=== PATIENT | male | born 1970 | race Caucasian/White ===

== ENCOUNTER 2023-12-09 08:36 | Emergency (ER) | payer OTHER, SELFPAY ==
--- NOTE | 2023-12-09 08:39 | ED.EXTPRO ---
HPI - Extremity Problem General Chief complaint: Skin/Abscess/Foreign Body Stated complaint: Right Leg Pain Time Seen by Provider: 12/09/23 08:38 Source: patient Mode of arrival: ambulatory Limitations: no limitations History of Present Illness HPI Narrative: Nahum is a 53-year-old male patient presenting to the clinic today with complaints of right upper thigh pain x 4 days. He reports no fever or chills but does state that he feels somewhat fatigued. He is also requesting a medication refill on his colestipol for chronic diarrhea. Related Data Home Medications Medication Instructions Recorded Confirmed amlodipine 10 mg tablet mg 12/09/23 atorvastatin 40 mg tablet mg 12/09/23 colestipol 1 gram tablet g PO 12/09/23 lisinopril 20 tablet 12/09/23 mg-hydrochlorothiazide 12.5 mg tablet potassium chloride 20 mEq meq PO 12/09/23 tablet,extended release(part/cryst) Allergies Allergy/AdvReac Type Severity Reaction Status Date / Time No Known Allergies Allergy Verified 12/09/23 08:55 Review of Systems Review of Systems: Pertinent positives per HPI. Patient denies any fever, chills, rash, headache, visual changes, dizziness, cough, runny nose, sore throat, shortness of breath, chest pain, palpitations, nausea, vomiting, diarrhea, constipation, abdominal pain, or any urinary issues. PMFSH Comments At the time of my signature, I reviewed and agree with the nursing past medical, surgical, social, and family history. There is no relevant family history pertinent to the patient complaint. Exam Narrative: General: Well-developed, well nourished, in no apparent distress Head: Normocephalic, atraumatic. Cardio: Regular rate and rhythm, s1 and s2 normal, no murmur appreciated. Resp: Clear to auscultation bilaterally, no rhonchi, rales, wheezing or rubs. Integumentary: [place], warm, and dry, 9 x 7 cm firm, indurated, erythemic, red, and tender area to the right anterior thigh. No abscess palpable. Skin marker was used to outline the redness. No edema to the right thigh or lower leg, pedal pulse palpable and strong. Course Course Emergency Course: Portions of this record may have been created with voice recognition software. Level of Care: Express Care Visit Vital Signs Vital signs: Vital Signs Temperature 37.2 C 12/09/23 08:51 Pulse Rate 84 12/09/23 08:51 Respiratory Rate 18 12/09/23 08:51 Blood Pressure 133/77 12/09/23 08:51 Pulse Oximetry 98 12/09/23 08:51 Oxygen Delivery Room Air 12/09/23 08:51 Temperature 37.2 C 12/09/23 08:51 Pulse Rate 84 12/09/23 08:51 Respiratory Rate 18 12/09/23 08:51 Blood Pressure 133/77 12/09/23 08:51 Pulse Oximetry 98 12/09/23 08:51 Oxygen Delivery Room Air 12/09/23 08:51 Vital signs reviewed MDM - Extremity (Nontraumatic) MDM Narrative Medical decision making narrative: At the time of visit patient is resting comfortably on the exam table. Patient appears to be nontoxic. Supportive measures were discussed with the patient and they voiced understanding discharge instructions and agrees to treatment plan. Return precautions reviewed Differential Diagnosis Differential diagnosis: Likely cellulitis Discharge Plan Discharge Clinical Impression: Cellulitis Qualifiers: Site of cellulitis: extremity Site of cellulitis of extremity: lower extremity Laterality: right Qualified Code(s): L03.115 - Cellulitis of right lower limb Patient Disposition: Home, Self-Care Condition: Stable Instructions: Antibiotic Form, Cellulitis (ED) Additional Instructions: Ceftriaxone 2 g IM given in the clinic today Start clindamycin 300 mg every 6 hours x 10 days May apply warm compress to the affected area to help bring to a head- if this becomes fluctuant may come follow up and have it drained. May take Tylenol/Motrin as needed for pain Increase fluids and stay well hydrated Take probiotic daily-take 2 hours bef
[2023-12-09 08:51] VITALS: BP 133/77; PULSE 84; RESP 18; TEMP 37.2; O2SAT 98
== END 2023-12-09 09:30 | disposition home or self-care (01) ==
PROVIDERS: Emergency Provider Nurse Practitioner Family
DX: L03.115 Cellulitis of right lower limb (principal); E78.00 Pure hypercholesterolemia, unspecified; I10 Essential (primary) hypertension; Z85.51 Personal history of malignant neoplasm of bladder; Z90.6 Acquired absence of other parts of urinary tract; Z93.6 Other artificial openings of urinary tract status
CPT/HCPCS: 96372; 99213; G0463; J0696

== ENCOUNTER 2023-12-12 08:06 | Emergency (ER) | payer OTHER, SELFPAY ==
[2023-12-12 08:25] VITALS: BP 153/86; PULSE 70; RESP 16; TEMP 37.4; O2SAT 99
--- NOTE | 2023-12-12 08:59 | ED.GENADULT ---
HPI - General Adult General Chief complaint: Skin/Abscess/Foreign Body Stated complaint: right leg issue Source: patient Mode of arrival: ambulatory Limitations: no limitations History of Present Illness HPI narrative: 53-year-old male with history of bladder cancer presented for complaint of skin infection to the right thigh for one week. Patient was seen for this wound on 12/09/2023, described as 9x7cm was prescribed clindamycin and given IM Rocephin in the clinic. He states the site is still red, warm, and tender, and is spreading to the side of the leg. States pain keeps him up at night. He also endorses an additional open wound to right lower leg which he sustained on 10/04/23 while at work. He states that wound was sutured but did not receive antibiotics, subsequently developed infection to the site, given IV abx, and has continued to treat the wound with washing with warm soapy water and covering it with gauze. Pt states he is concerned the two wounds are related. Related Data Home Medications Medication Instructions Recorded Confirmed amlodipine 10 mg tablet 10 mg PO DAILY 12/09/23 12/12/23 atorvastatin 40 mg tablet 40 mg PO DAILY 12/09/23 12/12/23 lisinopril 20 1 tablet PO DAILY 12/09/23 12/12/23 mg-hydrochlorothiazide 12.5 mg tablet potassium chloride 20 mEq 20 meq PO DIRECTED 12/09/23 12/12/23 tablet,extended release(part/cryst) Allergies Allergy/AdvReac Type Severity Reaction Status Date / Time No Known Allergies Allergy Verified 12/12/23 08:28 Review of Systems Review of Systems: CONSTITUTIONAL: Denies body aches, fever, chills, or sweats. EYES: Denies visual changes, redness, or discharge. ENT: Denies rhinorrhea, congestion CARDIOVASCULAR: Denies chest pain, palpitations, or edema. RESPIRATORY: Denies cough or dyspnea. GASTROINTESTINAL: Denies abdominal pain, nausea, vomiting, or diarrhea. SKIN: reports RLE leg wounds MUSCULOSKELETAL: Denies back pain, joint pain, or myalgia. NEUROLOGIC: Denies headache, numbness, tingling, or weakness. PMFSH Past Medical History Medical History (Updated 12/12/23 @ 09:30 by Jayshree Bernstein APRN) Bladder cancer Surgical History Surgical History (Updated 12/12/23 @ 09:02 by Jayshree Bernstein APRN) History of urostomy Social History Social History (Updated 12/12/23 @ 09:03 by Jayshree Bernstein APRN) Smoking status: Current every day smoker Comments At time of signature, I have reviewed and agree with nursing past medical, surgical, social and family history unless otherwise noted. Please see nursing chart for further information. There is no relevant family history pertinent to the presenting complaint Exam Narrative: GENERAL: Well-appearing ENT: Mucous membranes moist. NECK: Supple. No lymphadenopathy CHEST: Clear to auscultation. HEART: Regular rate and rhythm. SKIN: Warm, dry. Right anterior thigh area of induration approx [id number], the previously marked area appears to be improving medially but induration spreading laterally. Site is warm, tender. No fluctuance or active drainage. Right lower leg with [id number] open wound, draining serous fluid, tender surrounding the site. NEURO: Alert and oriented x3. Course Course Emergency Course: Patient is aware of diagnosis, understands and agrees to treatment plan. Anticipatory guidance given. Patient agrees to follow-up as directed and is aware of reasons to seek care at the emergency department. Portions of this record may have been created with voice recognition software Level of Care: Express Care Visit Vital Signs Vital signs: Vital Signs Temperature 99.3 F 12/12/23 08:25 Pulse Rate 70 12/12/23 08:25 Respiratory Rate 16 12/12/23 08:25 Blood Pressure 153/86 H 12/12/23 08:25 Pulse Oximetry 99 12/12/23 08:25 Oxygen Delivery Room Air 12/12/23 08:25 Temperature 99.3 F 12/12/23 08:25 Pulse Rate 70 12/12/23 08:25 Respiratory Rate
== END 2023-12-12 09:32 | disposition short-term general hospital (02) ==
PROVIDERS: Emergency Provider Nurse Practitioner Family
DX: S71.101D Unspecified open wound, right thigh, subsequent encounter (principal); L03.115 Cellulitis of right lower limb; X58.XXXD Exposure to other specified factors, subsequent encounter; Z85.51 Personal history of malignant neoplasm of bladder; F17.200 Nicotine dependence, unspecified, uncomplicated; Z93.6 Other artificial openings of urinary tract status
CPT/HCPCS: 99211; 99212; G0463

== ENCOUNTER 2023-12-12 10:08 | Emergency (ER) | payer OTHER, SELFPAY ==
[2023-12-12 10:09] VITALS: BP 151/89; PULSE 64; RESP 16; TEMP 36.4; O2SAT 100
--- NOTE | 2023-12-12 10:15 | ED.SKABFB ---
HPI - Skin/Abscess/Foreign Bdy General Chief complaint: Extremity Problem,Nontraumatic <Rakesh Brothers APRN - Last Filed: 12/12/23 13:37> Stated complaint: infx on leg <Rakesh Brothers APRN - Last Filed: 12/12/23 13:37> Time Seen by Provider: 12/12/23 10:15 <Rakesh Brothers APRN - Last Filed: 12/12/23 13:37> Source: patient <Rakesh Brothers APRN - Last Filed: 12/12/23 13:37> Mode of arrival: ambulatory <Rakesh Brothers APRN - Last Filed: 12/12/23 13:37> Limitations: no limitations <Rakesh Brothers APRN - Last Filed: 12/12/23 13:37> History of Present Illness HPI narrative: Nahum is a 53-year-old male patient presenting to the ER today with complaints of an abscess to the right thigh. Was seen in the urgent care 4 days ago and placed on clindamycin and given 2 g Rocephin IM. States that the redness has gotten worse laterally. Also reports that the area is now fluctuant when it was not fluctuant 4 days ago. Denies any fever or chills. <Rakesh Brothers APRN - Last Filed: 12/12/23 13:37> Related Data Home medications: Home Medications Medication Instructions Recorded Confirmed amlodipine 10 mg tablet 10 mg PO DAILY 12/09/23 12/12/23 atorvastatin 40 mg tablet 40 mg PO DAILY 12/09/23 12/12/23 lisinopril 20 1 tablet PO DAILY 12/09/23 12/12/23 mg-hydrochlorothiazide 12.5 mg tablet potassium chloride 20 mEq 20 meq PO DIRECTED 12/09/23 12/12/23 tablet,extended release(part/cryst) <Rakesh Brothers APRN - Last Filed: 12/12/23 13:37> Allergies/Adverse reactions: Allergies Allergy/AdvReac Type Severity Reaction Status Date / Time No Known Allergies Allergy Verified 12/12/23 08:28 <Rakesh Brothers APRN - Last Filed: 12/12/23 13:37> Review of Systems Review of Systems: Pertinent positives per HPI. Patient denies any fever, chills, rash, headache, visual changes, dizziness, cough, shortness of breath, chest pain, palpitations, nausea, vomiting, diarrhea, constipation, abdominal pain, or any urinary issues. <Rakesh Brothers APRN - Last Filed: 12/12/23 13:37> PMFSH Past Medical History Medical History: Medical History Bladder cancer <Rakesh Brothers APRN - Last Filed: 12/12/23 13:37> Surgical History Surgical History: Surgical History History of urostomy <Rakesh Brothers APRN - Last Filed: 12/12/23 13:37> Social History Social History: Social History Smoking status: Current every day smoker <Rakesh Brothers APRN - Last Filed: 12/12/23 13:37> Comments At the time of my signature, I reviewed and agree with the nursing past medical, surgical, social, and family history. There is no relevant family history pertinent to the patient complaint. <Rakesh Brothers APRN - Last Filed: 12/12/23 13:37> Exam Narrative: General: Well-developed, well nourished, in no apparent distress Head: Normocephalic, atraumatic. Cardio: Regular rate and rhythm, s1 and s2 normal, no murmur appreciated. Resp: Clear to auscultation bilaterally, no rhonchi, rales, wheezing or rubs. Integumentary: [place], warm, and dry, intact without lesion, 11cm x 7 cm induration with fluctuance to the right anterior thigh, redness, erythema, and tenderness to palpation. <Rakesh Brothers APRN - Last Filed: 12/12/23 13:37> Course Course Emergency Course: Portions of this record may have been created with voice recognition software. <Rakesh Brothers APRN - Last Filed: 12/12/23 13:37> BUSINESS DEVELOPMENT INTERN/PA Physician Supervision For this patient encounter, I reviewed the BUSINESS DEVELOPMENT INTERN or PA documentation, treatment plan, and medical decision making; and I had [id number] time with this patient. <Vince Mccarty MD - Last Filed: 12/12/23 17:
[2023-12-12 11:19] LABS: Basophils Absolute Auto 0.1 K/mm3 (0.0-0.1); Basophils Percent Auto 0.8 % (0.2-1.2); Eosinophils Absolute Auto 0.4 K/mm3 (0-0.3); Eosinophils Percent Auto 3.7 % (0-4.4); Hematocrit 41.8 % (42.0-52.0); Hemoglobin 13.3 g/dL (14.0-18.0); Immature Granulocyte Absolute 0.03 K/mm3 (0.00-0.031); Immature Granulocyte Percent A 0.3 % (0-0.5); Lymphocytes Absolute Auto 1.72 K/mm3 (0.9-3.2); Lymphocytes Percent Auto 14.4 % (18.3-44.2); Mean Corpuscular HGB Conc 31.8 g/dl (32-36); Mean Corpuscular Hemoglobin 28.6 pg (26-34); Mean Corpuscular Volume 89.9 fl (80-100); Mean Platelet Volume 10.4 fl (7.4-10.4); Monocytes Absolute Auto 0.6 K/mm3 (0.1-0.6); Monocytes Percent Auto 5.3 % (2.6-8.5); Neutrophils Absolute Auto 9.1 K/mm3 (1.3-6.7); Neutrophils Percent Auto 75.5 % (45.5-73.1); Platelet Count Result 225 k/mm3 (150-375); Red Blood Count 4.65 M/mm3 (4.6-6.20); Red Cell Distribution Width 14.1 % (11.5-14.5)
[2023-12-12 11:30] LABS: Alanine Aminotransferase 23 U/L (6-50); Albumin Level 3.9 g/dL (3.5-5.1); Alkaline Phosphatase 91 U/L (38-126); Anion Gap 6 mmol/L (8-16); Aspartate Amino Transferase 22 U/L (17-59); Bilirubin,Total 0.9 mg/dL (0.2-1.3); Blood Urea Nitrogen 18 mg/dL (9-20); Calcium 8.7 mg/dL (8.4-10.2); Carbon Dioxide 31 mmol/L (22-30); Chloride 106 mmol/L (98-107); Estimated CRCL calculation 106 ml/min; Estimated Glomerular Filt Rate > 60; Glucose 98 mg/dL (65-110); Sodium 143 mmol/L (137-145)
[2023-12-12 11:31] LABS: Lactic Acid Reflex 1.8 mmol/L (0.7-2.0)
== END 2023-12-12 12:18 | disposition home or self-care (01) ==
PROVIDERS: Emergency Provider Nurse Practitioner Family
DX: L02.415 Cutaneous abscess of right lower limb (principal); L03.115 Cellulitis of right lower limb; F17.200 Nicotine dependence, unspecified, uncomplicated; Z85.51 Personal history of malignant neoplasm of bladder; Z93.6 Other artificial openings of urinary tract status
CPT/HCPCS: 10061; 36415; 80053; 83605; 85025; 87040; 87070; 87147; 87181; 87186; 87205; 99283

== ENCOUNTER 2023-12-16 10:46 | Emergency (ER) | payer OTHER, SELFPAY ==
[2023-12-16] VITALS (14 sets, daily range): BP systolic 142–161; BP diastolic 91–110; PULSE 53–67; RESP 9–27; TEMP 36.6; O2SAT 96–100
--- NOTE | ~2023-12-16 | XR_ITS ---
EXAMINATION: XR chest 2V DATE: 12/16/2023 12:48 INDICATION: Infection left lower leg. TECHNIQUE: Frontal and lateral views of the chest were obtained. COMPARISON: None. FINDINGS: There is mild atelectasis in left lower lung zone. No pleural effusion or pneumothorax. The heart size is normal. There is a right internal jugular port with tip in superior vena cava. IMPRESSION: 1. Mild atelectasis in left lower lung zone. Reviewed, dictated and finalized at location E. [employer]
--- NOTE | 2023-12-16 12:06 | ED.GENADULT ---
HPI - General Adult General Chief complaint: Unspecified Stated complaint: positive blood culture Time Seen by Provider: 12/16/23 12:10 History of Present Illness HPI narrative: Patient is a 53-year-old male who presents to the emergency department this morning after getting a call that a wound that he was treated for here on Wednesday on the 12 of December grew MRSA on the wound culture. Patient is currently on clindamycin which covers him for MRSA. He is denying any symptoms at this and states that he only came in because he was told to do so. Patient states that he initially had a right lower extremity wound which she was treated for a month ago and then he developed a wound in his right lateral thigh which started out as a hard nodule and then popped and had a lot of pus drainage. Patient states that since then he feels as though the induration around the area decreased. Patient had the area marked with a skin marker and in the year if he may occur around the abscess seems to be decreasing away from the margins of the marking. Patient denies any chest pain, shortness of breath, nausea, vomiting, abdominal pain, dysuria, hematuria, constipation, diarrhea, melena, hematochezia, fevers or chills. Patient also denies any headaches, dizziness, lightheadedness, blurry visions, focal weakness, numbness and or tingling. There are no other modifying, alleviating, or precipitating factors at this time. Related Data Home Medications Medication Instructions Recorded Confirmed amlodipine 10 mg tablet 10 mg PO DAILY 12/09/23 12/12/23 atorvastatin 40 mg tablet 40 mg PO DAILY 12/09/23 12/12/23 lisinopril 20 1 tablet PO DAILY 12/09/23 12/12/23 mg-hydrochlorothiazide 12.5 mg tablet potassium chloride 20 mEq 20 meq PO DIRECTED 12/09/23 12/12/23 tablet,extended release(part/cryst) Allergies Allergy/AdvReac Type Severity Reaction Status Date / Time No Known Allergies Allergy Verified 12/12/23 08:28 Review of Systems Review of Systems: All systems are reviewed and are negative unless stated otherwise in the HPI. [facility] Past Medical History Medical History Bladder cancer Surgical History Surgical History History of urostomy Social History Social History Smoking status: Current every day smoker Exam Narrative: General: Alert, awake, afebrile, in no acute distress. HEENT: PERRL, no rhinorrhea, no post nasal drip, oropharynx clear. Neck: Trachea midline, no JVD, no lymphadenopathy. Cardiovascular: Regular rate and rhythm, no murmurs, rubs or gallops, no peripheral edema. Respiratory: Clear to auscultation bilaterally, no tachypnea, no wheezing, no rhonchi, no rubs, no respiratory distress. Abdomen: Soft, nontender, nondistended, no rebound, no guarding, no peritoneal signs. Musculoskeletal: No joint swelling or deformity, normal muscle tone, right lower extremity lateral leg wound measures approximately 1 x 1 cm which appears to be well healing. Right lower extremity lateral thigh cellulitis with abscess measuring approximately 3 x 3 cm appears to be well healing with decreasing your edema around the abscess from where skin marker was made. Skin: No rashes or petechia, no signs of infection. Psychiatric: Alert and oriented, normal behavior and judgment for situation. Neurological: Alert and oriented to person, place, and time. Follows all commands. No focal deficits, speech is clear and fluent. Course Vital Signs Vital signs: Vital Signs Temperature 97.8 F 12/16/23 11:05 Pulse Rate 56 L 12/16/23 11:05 Respiratory Rate 16 12/16/23 11:05 Blood Pressure 144/91 H 12/16/23 11:05 Pulse Oximetry 98 12/16/23 11:05 Temperature 97.8 F 12/16/23 11:05 Pulse Rate 54 L 12/16/23 13:32 Respiratory Rate 14 12/16/23 13:32 Blood Press
--- NOTE | 2023-12-16 12:10 | ECG_ITS ---
Measurements Intervals [place] Rate: 50 P: 183 [place]: 140 QRS: 178 QRSD: 104 T: 129 QT: 453 QTc: 415 Interpretive Statements SINUS BRADYCARDIA LIMB LEAD REVERSAL EARLY PRECORDIAL R/S TRANSITION BASELINE WANDER- I, II, III BORDERLINE ECG NO PREVIOUS ECG AVAILABLE FOR COMPARISON Electronically Signed On 12-16-2023 13:02:40 [employer]BER by Jose Tapia D.O.
[2023-12-16 12:40] LABS: Appearance Urine Cloudy (Clear); Bacteria Urine 2+ /hpf; Bilirubin Urine Negative (Negative); Blood Urine Negative (Negative); Color Urine Yellow (Yellow); Glucose Urine UA Negative (Negative); Ketones Urine Negative (Negative); Leukocyte Esterase Ur Negative LEU/UL (Negative); Need Manual Microscopic Reviewed; Nitrate Urine Positive (Negative); Non Pathogenic Casts 0-2; Protein Urine 1+ mg/dL (Negative); RBC Urine 0-2 /hpf (0-2); Specific Grav Ur 1.014 (1.001-1.035); Squamous Epithelial Cell Urine Occasional /hpf (Few); Urobilinogen Urine 0.2 mg/dL (<2.0); WBC Urine 51-100 /hpf; pH Urine 6.5 (5.0-9.0)
[2023-12-16 12:42] LABS: Add Urine Microscopic? YES
[2023-12-16 13:00] LABS: Basophils Absolute Auto 0.1 K/mm3 (0.0-0.1); Basophils Percent Auto 1.1 % (0.2-1.2); Eosinophils Absolute Auto 0.3 K/mm3 (0-0.3); Eosinophils Percent Auto 2.9 % (0-4.4); Hematocrit 41.6 % (42.0-52.0); Hemoglobin 13.5 g/dL (14.0-18.0); Immature Granulocyte Absolute 0.02 K/mm3 (0.00-0.031); Immature Granulocyte Percent A 0.2 % (0-0.5); Lymphocytes Absolute Auto 1.62 K/mm3 (0.9-3.2); Lymphocytes Percent Auto 18.1 % (18.3-44.2); Mean Corpuscular HGB Conc 32.5 g/dl (32-36); Mean Corpuscular Hemoglobin 28.8 pg (26-34); Mean Corpuscular Volume 88.9 fl (80-100); Monocytes Absolute Auto 0.4 K/mm3 (0.1-0.6); Monocytes Percent Auto 4.3 % (2.6-8.5); Neutrophils Absolute Auto 6.6 K/mm3 (1.3-6.7); Neutrophils Percent Auto 73.4 % (45.5-73.1); Platelet Count Result 253 k/mm3 (150-375); Red Blood Count 4.68 M/mm3 (4.6-6.20); Red Cell Distribution Width 13.6 % (11.5-14.5); White Blood Count 8.9 K/mm3 (4.5-10.0)
[2023-12-16 13:10] LABS: Lactic Acid Reflex 1.5 mmol/L (0.7-2.0)
[2023-12-16 13:11] LABS: Alanine Aminotransferase 21 U/L (6-50); Albumin Level 3.8 g/dL (3.5-5.1); Alkaline Phosphatase 97 U/L (38-126); Anion Gap 8 mmol/L (8-16); Aspartate Amino Transferase 23 U/L (17-59); Bilirubin,Total 0.6 mg/dL (0.2-1.3); Blood Urea Nitrogen 19 mg/dL (9-20); Calcium 8.8 mg/dL (8.4-10.2); Carbon Dioxide 27 mmol/L (22-30); Chloride 104 mmol/L (98-107); Estimated CRCL calculation 117 ml/min; Estimated Glomerular Filt Rate > 60; Glucose 118 mg/dL (65-110); Potassium 3.3 mmol/L (3.4-5.0); Sodium 139 mmol/L (137-145)
[2023-12-16] MEDS: POTASSIUM CHLORIDE 20 MEQ PACKET (FOR LIQUID) 40 MEQ PO (13:20)
== END 2023-12-16 14:32 | disposition home or self-care (01) ==
PROVIDERS: Emergency Provider Emergency Medicine
DX: L03.115 Cellulitis of right lower limb (principal); L02.415 Cutaneous abscess of right lower limb; B95.62 Methicillin resistant Staphylococcus aureus infection as the cause of diseases classified elsewhere; N39.0 Urinary tract infection, site not specified; F17.200 Nicotine dependence, unspecified, uncomplicated; Z85.51 Personal history of malignant neoplasm of bladder; R00.1 Bradycardia, unspecified
CPT/HCPCS: 36415; 71046; 80053; 81001; 83605; 85025; 87086; 87088; 93005; 99284; A9270

== ENCOUNTER 2024-12-05 19:15 | Emergency (ER) | payer OTHER, SELFPAY ==
--- NOTE | 2024-12-05 19:22 | ED.URI ---
HPI - URI/Sore Throat General Chief Complaint: Upper Respiratory Infection Stated Complaint: fever/sore throat/dry cough/weakness Time Seen by Provider: 12/05/24 19:22 Source: patient, RN notes reviewed and old records reviewed Mode of arrival: ambulatory Limitations: no limitations History of Present Illness HPI Narrative: Patient presents with less than 24 hour history of fever, body ache, cough, lack of energy. He reports that symptoms began yesterday right before bed with a slight cough, by the time this afternoon came around he ?felt like I had been hit by a truck?. He reports fever of 102 earlier today. States he did not take any medication for his symptoms. He is not in any distress, including respiratory distress. Voices no other concerns or complaints right now Related Data Home Medications ?Medication ?Instructions ?Recorded ?Confirmed ?Last Taken ?Type amlodipine 10 mg tablet 10 mg PO DAILY 12/09/23 12/12/23 Unknown History atorvastatin 40 mg tablet 40 mg PO DAILY 12/09/23 12/12/23 Unknown History lisinopril 20 1 tablet PO DAILY 12/09/23 12/12/23 Unknown History mg-hydrochlorothiazide 12.5 mg tablet potassium chloride 20 mEq 20 meq PO DIRECTED 12/09/23 12/12/23 Unknown History tablet,extended release(part/cryst) Allergies Allergy/AdvReac Type Severity Reaction Status Date / Time No Known Allergies Allergy Verified 12/05/24 19:21 Review of Systems Review of Systems: All systems reviewed & are unremarkable except as noted in HPI and below Constitutional: Constitutional: Reports as per HPI, Reports no additional constitutional complaints, Reports body ache(s), Reports chills, Reports fever(s), Reports headache(s) and Reports lethargy ENT: Reports system reviewed and no additional complaints, except as documented, Reports as per HPI and Reports nasal congestion Cardiovascular: Cardiovascular: Reports no additional cardiovascular complaints Respiratory: Respiratory: Reports no additional respiratory complaints and Reports cough Gastrointestinal: Gastrointestinal: Reports no additional gastrointestinal complaints PMFSH Past Medical History Medical History Bladder cancer Surgical History Surgical History History of urostomy Social History Social History Smoking status: Current every day smoker Comments At the time of my signature, I reviewed and agree with the nursing past medical, surgical, social, and family history. There is no relevant family history pertinent to the patient complaint. Exam Const: General: cooperative, no acute distress, alert and awake Orientation/consciousness: oriented to person, oriented to place and oriented to time HENMT: Head: normal to inspection Ears: TM's normal bilaterally Mouth: Yes moist mucous membranes Throat: posterior oropharynx normal Resp: Effort & Inspection: normal respiratory effort and able to speak in complete sentences Auscultation: clear to auscultation bilaterally, no crackles, no rales, no rhonchi and no wheezes Cardio: Palpation: normal PMI Rate: regular rate Rhythm: regular rhythm Heart sounds: S1 normal heart sound present and S2 normal heart sound present Neuro: General: oriented to person, oriented to place and oriented to time Cranial nerves: Yes CN's II-XII intact bilaterally Psych: Appearance: grossly normal Thought process: Normal thought process present Insight: Good insight present (Psych) Judgement: Good judgement present (Psych) Course Course Level of Care: Express Care Visit Vital Signs Vital signs: Reviewed MDM - URI/Sore Throat MDM Narrative Medical decision making narrative: Negative COVID, negative flu. Patient with symptoms that are likely viral in origin. Quite possible he has not been ill long enough for COVID or flu to show on testing at. He is advised to treat symptoms. Emergency department precautions discussed. Discharge instructions reviewed with patient, as well as provided in writing per nursing staff. The instructions also include specific and strict return/GO TO THE ER as well as f/u information. All questions have been answered, and the patient deny any further questions with discharge and discharge plan. Some parts of this dictation were generated by voice recognition software and may contain typographical and/or grammatical inaccuracies. Differential Diagnosis Differential diagnosis: Likely upper respiratory infection, sinusitis, viral infection and influenza Medical Records Attestation: I reviewed the patient's medical records. Lab Data Attestation: I reviewed the patient's lab results. Discharge Plan Discharge Clinical Impression: Viral infection Patient Disposition: Home, Self-Care Condition: Stable Instructions: Antibiotic Form, Viral Syndrome (ED) Additional Instructions: Use [id number] medications to treat your symptoms. Follow-up with primary care provider. Go to the emergency department with any new or worse symptoms Patient Language: [place] Citizen Prescriptions: No Action atorvastatin 40 mg tablet 40 mg PO DAILY lisinopril-hydrochlorothiazide 20-12.5 mg tablet 1 tablet PO DAILY potassium chloride 20 mEq tablet,ER particles/crystals 20 meq PO DIRECTED amlodipine 10 mg tablet 10 mg PO DAILY colestipol 1 gram tablet 2 g PO BID 30 Days Qty: 120 0RF Follow-up/Referrals: PHYSICIAN NOT ON STAFF,NONSTAFF [Primary Care Provider] - Stand Alone Forms: Work/School Release IP Time of Disposition: 19:47
[2024-12-05 19:29] VITALS: BP 155/89; PULSE 95; RESP 18; TEMP 38.3; O2SAT 97
[2024-12-05 19:46] LABS: EDCOVIDSCREEN Negative (Negative); EDINFLUASCREEN Negative (Negative); EDINFLUBSCREEN Negative (Negative)
== END 2024-12-05 19:40 | disposition home or self-care (01) ==
PROVIDERS: Emergency Provider Nurse Practitioner Family
DX: B34.9 Viral infection, unspecified (principal); Z20.822 Contact with and (suspected) exposure to COVID-19; F17.200 Nicotine dependence, unspecified, uncomplicated; Z85.51 Personal history of malignant neoplasm of bladder
CPT/HCPCS: 87426; 87804; 99212; G0463